=== PATIENT | male | born 1950 | race Caucasian/White ===

== ENCOUNTER 2017-11-16 16:00 | Outpatient (CLI) | payer MEDICARE, BC | END 2017-11-16 16:01 | disposition home or self-care (01) | LOC: SLEEPLAB 16:00 | PROVIDERS: ATTEND Internal Medicine Critical Care Medicine | DX: G47.33 Obstructive sleep apnea (adult) (pediatric) (principal); R53.83 Other fatigue | CPT/HCPCS: 95806 ==

== ENCOUNTER 2018-03-27 19:30 | Outpatient (CLI) | payer MEDICARE, BC | END 2018-03-27 19:31 | disposition home or self-care (01) | LOC: SLEEPLAB 19:30 | PROVIDERS: ATTEND Internal Medicine Critical Care Medicine | DX: G47.33 Obstructive sleep apnea (adult) (pediatric) (principal); R53.83 Other fatigue | CPT/HCPCS: 95811 ==

== ENCOUNTER 2018-09-19 08:40 | Outpatient (CLI) | payer MEDICARE, BC ==
--- NOTE | 2018-09-19 12:58 | MRI ---
MRI LUMBAR SPINE WITH AND WITHOUT CONTRAST: Date: 09/19/18 Multiplanar, multisequential imaging of lumbar spine obtained. INDICATION: Lumbar radicular pain. COMPARISON: MRI lumbar spine dated 10/08/15. FINDINGS: Lumbar vertebra maintain normal height and alignment. Degenerative disc changes are noted at L2-3 and L4-5. Mild loss of disc space at both of these levels. Vertebral body height is preserved. There are degenerative end plate changes at L2-3 with end plate edema noted on STIR sequence at this level. At L1-2, mild disc bulge abuts the anterior thecal sac. There is facet hypertrophy. No significant ce ntral canal or foraminal stenosis. At L2-3, there is an annular fissure. There is a diffuse broad based disc bulge which is more promine nt than on the exam of 2016. There is facet and ligamentous hypertrophy. These changes result in mild central canal stenosis. Mild foraminal encroachment bilaterally due to the broad based disc bulge an d facet hypertrophy. At L3-4, mild disc bulge. Facet and ligamentous hypertrophy. Facet and ligamentous hypertrophy. No si gnificant central canal or foraminal stenosis. At L4-5, there is an annular fissure with a broad based disc protrusion. Focal protrusion centrally a nd slightly to the left with slight inferior migration. This protruded disc has a similar appearance to 2016. It flattens the anterior thecal sac. There is facet and ligamentous hypertrophy. Moderate ce ntral canal stenosis is seen. Bilateral foraminal narrowing secondary to the broad based bulge and fa cet hypertrophy. At L5-S1, there is minimal disc bulge. Facet hypertrophy. Mild central canal stenosis. No foraminal s tenosis or encroachment. IMPRESSION: 1. Disc protrusion L4-5 with moderate central canal stenosis as described. 2. Annular fissure and broad based bulge at L2-3 with mild central canal stenosis as described. POS: DINA
== END 2018-09-19 08:41 | disposition home or self-care (01) ==
LOC: SCSMRI 08:40
PROVIDERS: ATTEND Neurological Surgery
DX: M51.16 Intervertebral disc disorders with radiculopathy, lumbar region (principal); M48.061 Spinal stenosis, lumbar region without neurogenic claudication; M48.07 Spinal stenosis, lumbosacral region
CPT/HCPCS: 72158; 82565

== ENCOUNTER 2019-02-21 07:14 | Outpatient (CLI) | payer MEDICARE, BC ==
--- NOTE | 2019-02-21 07:57 | ULT ---
ULTRASOUND ABDOMEN: HISTORY: Abdominal pain FINDINGS: The liver,gallbladder, pancreas, kidneys and visualized portions of the aorta and IVC appear normal. The common duct measures 5mm in diameter. No free fluid is seen. The spleen measures 6.3 cm. IMPRESSION: Normal exam.
== END 2019-02-21 07:15 | disposition home or self-care (01) ==
LOC: SCSULT 07:14
PROVIDERS: ATTEND Internal Medicine
DX: R10.11 Right upper quadrant pain (principal)
CPT/HCPCS: 76700

== ENCOUNTER 2021-06-21 09:55 | Outpatient (CLI) | payer MEDICARE, BC | END 2021-06-21 09:56 | disposition home or self-care (01) | LOC: TBSIIMAG 09:55 | PROVIDERS: ATTEND Radiology Radiation Oncology | DX: C61 Malignant neoplasm of prostate (principal) | CPT/HCPCS: 72197; 82565 ==

== ENCOUNTER 2025-02-05 08:16 | Outpatient (CLI) | payer MEDICARE, BC ==
[2025-02-05 09:19] LABS: Estimated GFR - POC 62.0
== END 2025-02-05 08:17 | disposition home or self-care (01) ==
LOC: SCSMRI 08:16
PROVIDERS: ATTEND Radiology Radiation Oncology
DX: C61 Malignant neoplasm of prostate (principal)
CPT/HCPCS: 36415; 72197; 82565